=== PATIENT | female | born 1970 | race Caucasian/White ===

== ENCOUNTER 2019-12-29 13:08 | Emergency (ER) | payer MEDICAID, OTHER ==
[~2019-12-29] VITALS: Ht 157.5 cm; Wt 55.3 kg
[2019-12-29 13:13] VITALS: BP_SYST 148
--- NOTE | 2019-12-29 13:22 | NUR ---
Patient to ER bed 3 to gown for evaluation. Side rails up.
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
--- NOTE | 2019-12-29 13:35 | NUR ---
REPORT FROM MACIE ARAGON
--- NOTE | 2019-12-29 13:37 | NUR ---
ER at bedside examining patient.
--- NOTE | 2019-12-29 13:50 | NUR ---
PT IN RADIOLOGY
[2019-12-29 15:10] VITALS: BP_SYST 144
--- NOTE | 2019-12-29 15:10 | NUR ---
Patient given written and verbal discharge instructions and verbalizes understanding. ER MD discussed with patient the results and treatment provided. Patient in stable condition. ID arm band removed. Rx of MOTRIN given. Patient educated on pain management and to follow up with PMD. Pain Scale3/10. Opportunity for questions provided and answered. Medication side effect fact sheet provided.
== END 2019-12-29 15:10 | disposition home or self-care (01) ==
LOC: SED 13:08
DX: S06.0X0A Concussion without loss of consciousness, initial encounter (principal); S39.012A Strain of muscle, fascia and tendon of lower back, initial encounter; W22.8XXA Striking against or struck by other objects, initial encounter; Y93.89 Activity, other specified; Y92.89 Other specified places as the place of occurrence of the external cause; Y99.8 Other external cause status
CPT/HCPCS: 70450-TC; 72131; 81002; 99285

== ENCOUNTER 2020-09-16 18:55 | Emergency (ER) | payer MEDICAID ==
[~2020-09-16] VITALS: Ht 167.6 cm; Wt 59.0 kg
[2020-09-16 19:10] VITALS: BP_SYST 149
--- NOTE | 2020-09-16 19:10 | NUR ---
Patient to ER bed 03 to gown for evaluation. Side rails up. Report given to Earl Freire and EARL Moreau
--- NOTE | 2020-09-16 19:11 | NUR ---
Came in ER ambulatory from home t5his 50 year old female , AAOX4,breathing spontaneously at room air, not in distress noted. With chief compliants of constipation for 4-5days, had a recent ultrasound result revealed rectal cyst, denies any bleeding. No known medical/ no surgical history. Vital signs stable .
--- NOTE | 2020-09-16 19:49 | NUR ---
ER at bedside examining patient.
--- NOTE | 2020-09-16 19:54 | NUR ---
# 20 gauge angiocath placed to RAC. Use of asceptic technique. Opsite placed over site. Blood return noted. Blood for lab drawn from site. Flushed with 10 cc of normal saline. No evidence of infiltration noted. Patient tolerated well. Blood collected and sent to lab.
--- NOTE | 2020-09-16 20:08 | NUR ---
Urine collected and sent to lab.
[2020-09-16 20:09] LABS: BASOPHILS # (AUTO) 0.1 K/uL (0.0-0.2); BASOPHILS % (AUTO) 1.2 % (0.0-2.0); EOSINOPHILS # (AUTO) 0.1 K/uL (0.0-0.4); EOSINOPHILS % (AUTO) 2.2 % (0.0-4.0); HEMATOCRIT 43.1 % (36-48); HEMOGLOBIN 14.2 g/dL (12.0-16.0); LYMPHOCYTES # (AUTO) 2.4 K/uL (1.0-5.5); LYMPHOCYTES % (AUTO) 37.9 % (20.5-51.5); MEAN CORPUSCULAR HEMOGLOBIN 29 pg (27-31); MEAN CORPUSCULAR HGB CONC 33 % (32-36); MEAN CORPUSCULAR VOLUME 87 fL (79.0-98.0); MONOCYTES # (AUTO) 0.5 K/uL (0.0-1.0); MONOCYTES % (AUTO) 8.3 % (1.7-9.3); NEUTROPHILS # (AUTO) 3.2 K/uL (1.8-7.7); NEUTROPHILS % (AUTO) 50.4 % (40.0-70.0); PLATELET COUNT (AUTO) 374 K/uL (130-430); RED BLOOD CELL COUNT(AUTO) 4.97 MIL/uL (4.2-6.2); RED CELL DISTRIBUTION WIDTH 14.2 % (9.0-15.0); WHITE BLOOD COUNT (AUTO) 6.4 K/uL (4.8-10.8)
[2020-09-16 20:13] LABS: CALCIUM 8.9 mg/dL (8.4-11.0); CREATININE 0.9 mg/dL (0.55-1.30); POTASSIUM 3.7 mmol/L (3.5-5.1)
[2020-09-16 20:15] LABS: BILIRUBIN,URINE NEGATIVE (NEGATIVE); BLOOD, URINE NEGATIVE (NEGATIVE); CLARITY/URINE CLEAR (CLEAR); COLOR,URINE YELLOW (YELLOW); GLUCOSE,URINE NEGATIVE (NEGATIVE); KETONES,URINE NEGATIVE (NEGATIVE); LEUKOCYTE ESTERASE ,URINE NEGATIVE (NEGATIVE); NITRITE, URINE NEGATIVE (NEGATIVE); PH,URINE 5.5 (5.0-8.0); PROTEIN URINE NEGATIVE (NEGATIVE); UROBILINOGEN,URINE 0.2 (0.2-1.0)
[2020-09-16 20:19] LABS: ALBUMIN 3.4 g/dL (3.4-4.8); TOTAL BILIRUBIN 0.2 mg/dL (0.0-1.0)
--- NOTE | 2020-09-16 20:40 | NUR ---
CT with contrast consent reviewed and signed by pt.
--- NOTE | 2020-09-16 20:43 | NUR ---
Patient transported to radiology via wheelchair, accompanied by tech.
--- NOTE | 2020-09-16 21:01 | NUR ---
Pt back from CT resting in [facility] reattached to monitor.
[2020-09-16 21:45] VITALS: BP_SYST 149
--- NOTE | 2020-09-16 21:45 | NUR ---
Patient given written and verbal discharge instructions and verbalizes understanding. ER MD discussed with patient the results and treatment provided. Patient in stable condition. ID arm band removed. IV catheter removed intact and dressing applied, no active bleeding. Rx of Colace given. Patient educated on pain management and to follow up with PMD. Pain Scale 0/10. Opportunity for questions provided and answered. Medication side effect fact sheet provided.
== END 2020-09-16 21:45 | disposition home or self-care (01) ==
LOC: SED 18:55
DX: R19.00 Intra-abdominal and pelvic swelling, mass and lump, unspecified site (principal); R10.31 Right lower quadrant pain
CPT/HCPCS: 36415; 74177; 76376; 80053; 81003; 83690; 85025; 99285; Q9967